=== PATIENT | female | born 1995 | race Caucasian/White ===

== ENCOUNTER 2016-07-16 09:51 | Emergency (ER) | payer BC ==
[2016-07-16] MEDS ORDERED: IBUPROFEN 800 MG TABLET ONE (10:34)
[2016-07-16] MEDS ORDERED: DIPHENHYDRAMINE HCL 50 MG CAPSULE ONE (10:34)
[2016-07-16] MEDS ORDERED: ACETAMINOPHEN 500 MG TABLET ONE (12:16)
== END 2016-07-16 12:31 | disposition home or self-care (01) ==
LOC: ED 09:51
DX: J11.1 Influenza due to unidentified influenza virus with other respiratory manifestations (principal); J45.909 Unspecified asthma, uncomplicated; R53.83 Other fatigue
CPT/HCPCS: 87880; 87804; 99283 ×2; 82962; A9270 ×3